=== PATIENT | female | born 1985 | race Caucasian/White ===

== ENCOUNTER → 2016-09-14 | Outpatient (CLI) | payer OTHER ==
[~2016-09-14] MED LIST: ALBUAER19 INH; CLR10 PO; MONT1TAB3 PO; PRENTAB26 PO; RANI150T3 PO
== END | disposition home or self-care (01) ==
LOC: C.LAB1850 08:11 → EDSTATUS 09-22 09:56
PROVIDERS: ATTEND Nurse Practitioner Adult Health
DX: T14.8 Other injury of unspecified body region (principal); W46.1XXA Contact with contaminated hypodermic needle, initial encounter

== ENCOUNTER → 2016-11-09 | Outpatient (CLI) | payer OTHER | END | disposition home or self-care (01) | LOC: C.LAB1850 08:07 → EDSTATUS 11-22 09:49 | PROVIDERS: ATTEND Emergency Medicine | DX: Z77.21 Contact with and (suspected) exposure to potentially hazardous body fluids (principal) ==

== ENCOUNTER → 2017-07-20 | Outpatient (CLI) | payer BC | END | disposition home or self-care (01) | LOC: C.LABSPEC 17:03 | PROVIDERS: ATTEND Obstetrics & Gynecology | DX: O09.291 Supervision of pregnancy with other poor reproductive or obstetric history, first trimester (principal); Z86.32 Personal history of gestational diabetes ==

== ENCOUNTER → 2017-07-26 | Outpatient (CLI) | payer BC ==
[2017-07-26 17:21] LABS: BASO % 0.4 %; BASO ABS # 0.03 K/uL (0-0.2); EOS % 3.8 %; EOS ABS # 0.29 K/uL (0-0.5); HEMATOCRIT 36.6 % (37-47); HEMOGLOBIN 13.1 g/dL (12.0-16.0); IG# 0.01 K/uL (0.00-0.02); LYMPH % 24.9 %; LYMPH ABS # 1.91 K/uL (1.2-3.4); MEAN CELL VOLUME 84.1 fL (80-100); MEAN CORPUSCULAR HEMOGLOBIN 30.1 pg (25-34); MEAN CORPUSCULAR HGB CONC 35.8 g/dl (32-36); MEAN PLATELET VOLUME 10.6 fL (7.4-10.4); MONO % 5.1 %; MONO ABS # 0.39 K/uL (0.11-0.59); NEUT % 65.7 %; NEUT ABS # 5.05 K/uL (1.4-6.5); PLATELET COUNT 274 K/uL (130-400); RED CELL DISTRIBUTION WIDTH CV 12.3 % (11.5-14.5); RED CELL DISTRIBUTION WIDTH SD 37.8 fL (36.4-46.3); WHITE BLOOD COUNT 7.68 K/uL (4.8-10.8)
== END | disposition home or self-care (01) ==
LOC: C.RAD1850 16:10
PROVIDERS: ATTEND Obstetrics & Gynecology
DX: O09.291 Supervision of pregnancy with other poor reproductive or obstetric history, first trimester (principal)

== ENCOUNTER → 2017-07-26 | Outpatient (CLI) | payer BC | END | disposition home or self-care (01) | LOC: C.PAPS 09:12 | PROVIDERS: ATTEND Obstetrics & Gynecology | DX: O09.291 Supervision of pregnancy with other poor reproductive or obstetric history, first trimester (principal) ==

== ENCOUNTER → 2017-07-26 | Outpatient (CLI) | payer BC | END | disposition home or self-care (01) | LOC: C.LABSPEC 17:56 | PROVIDERS: ATTEND Obstetrics & Gynecology | DX: O09.291 Supervision of pregnancy with other poor reproductive or obstetric history, first trimester (principal) ==

== ENCOUNTER → 2018-02-12 | Outpatient (CLI) | payer BC ==
[~2018-02-12] MED LIST changes: +CLC100 PO
[2018-02-12 16:16] LABS: HEMATOCRIT 37.5 % (37-47); HEMOGLOBIN 12.9 g/dL (12.0-16.0); MEAN CORPUSCULAR HEMOGLOBIN 31.3 pg (25-34); MEAN CORPUSCULAR HGB CONC 34.4 g/dl (32-36); MEAN PLATELET VOLUME 12.4 fL (7.4-10.4); PLATELET COUNT 188 K/uL (130-400); RED CELL DISTRIBUTION WIDTH CV 13.6 % (11.5-14.5); RED CELL DISTRIBUTION WIDTH SD 44.7 fL (36.4-46.3); WHITE BLOOD COUNT 8.87 K/uL (4.8-10.8)
[2018-02-12 16:54] LABS: ALBUMIN 2.8 gm/dl (3.4-5.0); ALKALINE PHOSPHATASE 161 U/L (45-117); ALT/SGPT 17 U/L (12-78); AST/SGOT 13 U/L (15-37); BLOOD UREA NITROGEN 12 mg/dl (7-18); CARBON DIOXIDE 23 mmol/L (21-32); CREATININE 0.63 mg/dl (0.60-1.20); GLUCOSE 85 mg/dl (70-99); SODIUM 134 mmol/L (136-145)
== END | disposition home or self-care (01) ==
LOC: C.LAB1850 15:46
PROVIDERS: ATTEND Obstetrics & Gynecology
DX: O26.93 Pregnancy related conditions, unspecified, third trimester (principal)

== ENCOUNTER 2018-02-15 09:04 | Inpatient (IN) | payer BC ==
[~2018-02-15] VITALS: Ht 161.9 cm; Wt 93.2 kg
[~2018-02-15 09:04] MED LIST changes: -CLC100 PO
[2018-02-15] MEDS ORDERED: LACTATED RINGER'S 1000ML 1,000 ML IV PRN (09:16)
[2018-02-15] MEDS ORDERED: PENICILLIN G POTASSIUM IV 6 MU in DEXTROSE 5% 250ML 250 ML IV ONE (09:30)
[2018-02-15] MEDS ORDERED: LACTATED RINGER'S 1000ML 500 ML IV PRN ×2 (09:30→15:51)
[2018-02-15] MEDS ORDERED: OXYTOCIN 30 UNITS/500ML NSS IV PRN ×2 (09:30→20:45)
[2018-02-15 09:56] LABS: INR 0.9 (0.9-1.1)
[2018-02-15 10:09] LABS: ALT/SGPT 16 U/L (12-78); AST/SGOT 14 U/L (15-37); CREATININE 0.56 mg/dl (0.60-1.20)
[2018-02-15] MEDS: LACTATED RINGER'S 1000ML 1,000 ML IV SCH ×2 (10:29→14:31)
[2018-02-15 11:33] VITALS: Ht 161.9 cm; Wt 93.2 kg
[2018-02-15 13:13] LABS: HEMATOCRIT 36.4 % (37-47); HEMOGLOBIN 12.3 g/dL (12.0-16.0); MEAN CELL VOLUME 91.2 fL (80-100); MEAN CORPUSCULAR HEMOGLOBIN 30.8 pg (25-34); MEAN CORPUSCULAR HGB CONC 33.8 g/dl (32-36); MEAN PLATELET VOLUME 12.8 fL (7.4-10.4); PLATELET COUNT 170 K/uL (130-400); RED CELL DISTRIBUTION WIDTH CV 13.6 % (11.5-14.5); RED CELL DISTRIBUTION WIDTH SD 44.9 fL (36.4-46.3); WHITE BLOOD COUNT 7.95 K/uL (4.8-10.8)
[2018-02-15] MEDS: PENICILLIN G POTASSIUM IV 3 MU in DEXTROSE 5% 100ML 100 ML IV PRN ×2 (14:31→18:50)
[2018-02-15] MEDS ORDERED: EpHEDrine SULFATE INJ 50 MG/ML AMP ONE (15:20)
[2018-02-15] MEDS ORDERED: FENTANYL CITRATE INJ 50 MCG/1 ML 2 ML VIAL ONE (15:20)
[2018-02-15] MEDS ORDERED: BUPIVACAINE 0.25% 30 ML VIAL ONE (15:20)
[2018-02-15] MEDS ORDERED: FENTANYL 2MCG/ML ROPIV 1.25MG/ML 100ML BAG ONE (15:21)
[2018-02-15] MEDS ORDERED: NALOXONE HCL INJ 1 MG in SODIUM CHLORIDE 0.9% 1000ML 1,000 ML IV PRN (15:51)
[2018-02-15] MEDS ORDERED: FENTANYL 2MCG/ML ROPIV 1.25MG/ML 100ML BAG EPI PRN (16:00)
[2018-02-15] MEDS ORDERED: DiphenhydrAMINE HCL 50 MG/ML VIAL IV PRN (16:00)
[2018-02-15] MEDS ORDERED: PROMETHAZINE HCL INJ 6.25 MG in SODIUM CHLORIDE 0.9% 50ML 50 ML IV PRN (16:00)
[2018-02-15] MEDS ORDERED: NALBUPHINE HCL INJ 10 MG/ML 1ML AMP IV PRN (16:00)
[2018-02-15] MEDS ORDERED: EpHEDrine SULFATE INJ 50 MG/ML AMP IV PRN (16:00)
[2018-02-15] MEDS ORDERED: NALOXONE HCL INJ 0.4 MG/1 ML VIAL/CARP IV PRN (16:00)
[2018-02-15] MEDS ORDERED: ONDANSETRON INJ 2 MG/ML 2 ML VIAL IV PRN (16:00)
[2018-02-15] MEDS: ALBUTEROL HFA 8 GM INHALER INH SCH ×2 (17:00→21:00)
[2018-02-15] MEDS: RANITIDINE HCL 150 MG TAB PO SCH (20:00)
[2018-02-15] MEDS ORDERED: NURSING VERBAL MED ORDER ONE ×2 (20:15→21:30)
[2018-02-15] MEDS ORDERED: CEFAZOLIN IV 2,000 MG in SYRINGE 0 ML IV SCH (20:30)
[2018-02-15] MEDS ORDERED: ACETAMINOPHEN 325 MG TAB PO PRN (20:45)
[2018-02-15] MEDS ORDERED: BENZOCAINE 20% AER SPR 82.5 GM CAN EXT PRN (20:45)
[2018-02-15] MEDS ORDERED: LANOLIN OINT EXT PRN (20:45)
[2018-02-15] MEDS ORDERED: SUPERCREAM 0.870 % 15GM JAR EXT PRN (20:45)
--- NOTE | 2018-02-15 21:11 | Anesthesia Procedure Note ---
Anesthesia Epidural Removal Nt Date & Time Feb 15, 2018 at 21:11 Vital Signs Pain Intensity: 3.0 Notes Mental Status: alert / awake / arousable, participated in evaluation Nausea / Vomiting: adequately controlled Pain: adequately controlled Airway Patency, RR, SpO2: stable & adequate BP & HR: stable & adequate Hydration State: stable & adequate Neuraxial Anesthesia: was administered, sensory block is resolving Anesthetic Complications: no major complications apparent, pt satisfied with anesthetic care Epidural: removed without complications, with tip intact
[2018-02-15] MEDS: LORATADINE 10 MG TAB PO SCH (22:13)
[2018-02-15] MEDS: MONTELUKAST SOD 10 MG TAB PO SCH (22:13)
--- NOTE | 2018-02-15 22:53 | DELIVERY SUMMARY ---
DATE OF OPERATION: 02/15/2018 PROCEDURE: Normal spontaneous vaginal delivery with a repair of a 3a perineal laceration and periurethral laceration. SURGEON: Dr. Serafin Stallings. PREOPERATIVE DIAGNOSES: 1. Single uterine at 37 weeks 6 days gestational age. 2. Gestational hypertension. 3. Alpha-1 antitrypsin deficiency carrier. 4. Diet-controlled gestational diabetes mellitus. 5. GBS positive. 6. Rh negative. POSTOPERATIVE DIAGNOSES: 1. Single uterine at 37 weeks 6 days gestational age. 2. Gestational hypertension. 3. Alpha-1 antitrypsin deficiency carrier. 4. Diet-controlled gestational diabetes mellitus. 5. GBS positive. 6. Rh negative. ESTIMATED BLOOD LOSS: 350 mL. DRAINS: Straight cath drain, periurethral laceration repair. URINE OUTPUT: Approximately 150 mL via straight cath. COMPLICATIONS: None. FINDINGS: Viable male with weight pending and Apgars 8 and 9 at 1 and 5 minutes respectively. PROCEDURE IN DETAIL: The patient progressed to 10 cm dilated, 100% effaced, positive 2-3 station, pushed over an intact perineum with epidural anesthesia, delivered a viable male with weight pending and Apgars as above. Head of the delivered in ANITA position. No nuchal cord present. The body and shoulders delivered without difficulty. The was noted to be vigorous upon delivery with suctioned bulbed immediately after delivery and was delivered to the maternal abdomen. A 60-second delayed cord clamping was initiated after which the cord was double clamped and cut. The was maintained on the maternal abdomen and cord segment and cord blood were obtained. Placenta was delivered intact with 3-vessel cord with gentle cord traction and was noted to be intact. At this time, attention was turned to the perineum, cervix, and vagina for especially there was noted to be a 3a perineal laceration. This external anal sphincter, capsule were approximated with 3-0 Vicryl with 3 interrupted stitch. The remaining second-degree laceration was repaired with 3-0 Vicryl with a continuous running crown stitch. There was also noted to be a small periurethral laceration, which was noted to be bleeding and was closed with 3 interrupted stitch of 3-0 Vicryl. Hemostasis was noted on all laceration sites. A rectal exam showed intact rectum with no suture present. The patient was noted to be in excellent condition and remained in delivery room during the recovery period with her . I attest to the content of the Intraoperative Record and any orders documented therein. Any exceptions are noted below. INDIRA
[2018-02-16] VITALS (7 sets, daily range): BP systolic 119–156; BP diastolic 74–97; PULSE 70–90; TEMP 36.4–36.7
[2018-02-16] MEDS: IBUPROFEN 600 MG TAB PO PRN ×6 (00:09→23:54)
--- NOTE | 2018-02-16 04:49 | Progress Note ---
Subjective Feb 16, 2018. Subjective conversation w/ patient, chart review, lab review Ambulation: ambulating normally Voiding: no voiding problems Diet Tolerance: Regular Diet Lochia: Small Feeding Type: Breast Feeding Objective Physical Exam General Appearance: WELL-APPEARING Abdomen: non tender Fundus: Firm Laboratory Results Last 24 Hours Test 02/15/18 09:32 02/15/18 09:38 02/15/18 10:07 02/16/18 04:44 Prothrombin Time 9.2 SECONDS Prothromb Time International Ratio 0.9 Activated Partial Thromboplast Time 25.0 SECONDS Partial Thromboplastin Ratio 1.0 Creatinine 0.56 mg/dl Estimated GFR () 144.0 Estimated GFR (Non- 124.2 Aspartate Amino Transf (AST/SGOT) 14 U/L Alanine Aminotransferase (ALT/SGPT) 16 U/L White Blood Count 7.95 K/uL Red Blood Count 3.99 M/uL Hemoglobin 12.3 g/dL Hematocrit 36.4 % Mean Corpuscular Volume 91.2 fL Mean Corpuscular Hemoglobin 30.8 pg Mean Corpuscular Hemoglobin Concent 33.8 g/dl RDW Standard Deviation 44.9 fL RDW Coefficient of Variation 13.6 % Platelet Count 170 K/uL Mean Platelet Volume 12.8 fL Bedside Glucose 92 mg/dl Assessment and Plan Post- Day#: 1 Continue Routine Care: well. No calf pain. Minimal bleeding. Cont current care
--- NOTE | 2018-02-16 06:54 | Progress Note ---
Subjective Feb 16, 2018. Subjective conversation w/ patient, physical exam Ambulation: ambulating normally Voiding: no voiding problems Passing Gas: Yes Diet Tolerance: Regular Diet Lochia: Moderate Feeding Type: Breast Feeding Pain: 1/10 improves with analgesia Review of Systems Constitutional: No fever, No chills, No sweats Respiratory: No cough, No sputum, No wheezing Cardiac: No chest pain, No palpitations Abdomen: No pain, No nausea, No vomiting Female : No dysuria Objective Vital Signs Date Time Temp Pulse Resp B/P (MAP) Pulse Ox O2 Delivery O2 Flow Rate FiO2 02/16/18 04:00 36.7 70 18 130/77 (94) Room Air 02/16/18 00:30 36.6 73 18 133/81 02/16/18 00:30 Room Air Physical Exam General Appearance: WELL-APPEARING, NO APPARENT DISTRESS Respiratory/Chest: chest non-tender, no respiratory distress Cardiovascular: regular rate, rhythm Abdomen: normal bowel sounds Fundus: Firm, Relation to Umbilicus (below) Extremities: non-tender, no calf tenderness Laboratory Results Last 24 Hours Test 02/15/18 09:32 02/15/18 09:38 02/15/18 10:07 02/16/18 04:44 Prothrombin Time 9.2 SECONDS Prothromb Time International Ratio 0.9 Activated Partial Thromboplast Time 25.0 SECONDS Partial Thromboplastin Ratio 1.0 Creatinine 0.56 mg/dl Estimated GFR () 144.0 Estimated GFR (Non- 124.2 Aspartate Amino Transf (AST/SGOT) 14 U/L Alanine Aminotransferase (ALT/SGPT) 16 U/L White Blood Count 7.95 K/uL Red Blood Count 3.99 M/uL Hemoglobin 12.3 g/dL Hematocrit 36.4 % Mean Corpuscular Volume 91.2 fL Mean Corpuscular Hemoglobin 30.8 pg Mean Corpuscular Hemoglobin Concent 33.8 g/dl RDW Standard Deviation 44.9 fL RDW Coefficient of Variation 13.6 % Platelet Count 170 K/uL Mean Platelet Volume 12.8 fL Bedside Glucose 92 mg/dl Medications Current Inpatient Medications Medications (Trade) Dose Ordered Sig/Silvestre Route Start Time Stop Time Status Last Admin Dose Admin Lactated Ringer's 1,000 ml @ 125 mls/hr Q8H IV 02/15/18 09:16 02/17/18 09:15 02/15/18 14:31 125 MLS/HR Lactated Ringer's 1,000 ml @ 999 mls/hr Q1H1M PRN IV 02/15/18 09:16 03/17/18 09:15 Oxytocin (Pitocin IV) 30 units UD PRN IV 02/15/18 09:30 03/17/18 09:29 02/15/18 10:38 30 UNITS Lactated Ringer's 500 ml @ 999 mls/hr Q31M PRN IV 02/15/18 09:30 03/17/18 09:29 Albuterol (Ventolin Hfa Inhaler) 2 puffs QID INH 02/15/18 17:00 03/17/18 16:59 Montelukast Sodium (Singulair Tab) 10 mg HS PO 02/15/18 22:00 03/17/18 21:59 02/15/18 22:13 10 MG Ranitidine HCl (zANTac TAB) 150 mg BID PO 02/15/18 20:00 03/17/18 19:59 Oxytocin (Pitocin IV) 30 units UD PRN IV 02/15/18 20:45 03/17/18 20:44 Benzocaine (Dermoplast Aero Spr) 1 appln PRN PRN EXT 02/15/18 20:45 03/17/18 20:44 02/16/18 00:09 1 APPLN Cocaine HCl (Supercream 0.870% Cr) BID PRN EXT 02/15/18 20:45 03/01/18 20:44 Lanolin (Lanolin Oint) PRN PRN EXT 02/15/18 20:45 03/17/18 20:44 Prenat Multivit/ [place]/Iron/Folic Ac ( Vitamin Tab) 1 tab DAILY PO 02/16/18 08:00 03/18/18 07:59 Ibuprofen (Motrin Tab) 600 mg Q4H PRN PO 02/15/18 20:45 03/17/18 20:44 02/16/18 05:13 600 MG Acetaminophen (Tylenol Tab) 650 mg Q6H PRN PO 02/15/18 20:45 03/17/18 20:44 Bisacodyl (Dulcolax Tab) 5 mg 20 PO 02/16/18 20:00 02/16/18 20:01 Docusate Sodium (coLACE CAP) 100 mg BID PO 02/16/18 08:00 03/18/18 07:59 Loratadine (Claritin Tab) 10 mg HS PO 02/15/18 22:00 03/17/18 21:59 02/15/18 22:13 10 MG Assessment and Plan Post- Day#: 1 Continue Routine Care: 32 yo delivered at 37+6 PPD1 s/p -AFVSS, Pt doing well resting comfortably with baby in the room -no si/sx of anemia, will follow up Hgb from today, 12.3 on admission -Plan is to breast feed -Tolerating regular diet, no n/v -Continue to encourage ambulation -Routine care Resident Tracking Resident Involvement: Resident Care Provided Care Provided: Adult Hospital Medicine
--- NOTE | 2018-02-16 07:07 | Discharge Instructions ---
Discharge Instructions Date of Service Feb 16, 2018. Admission Reason for Admission: Induction Discharge Discharge Diagnosis / Problem: Discharge Goals Goal(s): Routine recovery after delivery Medications Continue Dispensed Medications: supercream, dermaplast, tucks Activity Recommendations Activity Limitations: per Instructions/Follow-up section . Instructions / Follow-Up Instructions / Follow-Up ACTIVITY RECOMMENDATIONS: * Gradual return to full activity over the next 2-3 weeks. * No lifting - nothing heavier than baby over the next 2-3 weeks. * Do not engage in vigorous exercise, sexual activity or sports until cleared by your physician. * Do not drive or operate any motorized equipment until cleared by your physician. * You may shower/bathe daily. MEDICATIONS: For discomfort or pain, you may use Acetaminophen (Tylenol), Ibuprofen (Advil), or Naproxen (Aleve) following the package directions. For constipation you may use Colace following the package directions. BREAST CARE: If you are not breast feeding: * Wear a supportive bra 24 hours a day for one to two weeks. * Avoid stimulating your breasts and nipples as much as possible during the first few weeks after delivery. * When taking a shower, have the warm water hit your back, not breasts. * When your breasts feel full, apply ice packs. Usually three to four times a day helps ease the discomfort. * Take a mild pain medication (Tylenol / Motrin) when you are uncomfortable. If breast feeding: * Use breast milk to lubricate nipples. Lansinoh cream may be used for sore nipples. You do not need to remove cream prior to breast feeding. If using a different brand of cream, check the label for directions regarding removal of cream prior to nursing. * Wear a supportive bra. * If having problems with breasts or breast feeding, call a recruiting consultant or your health care provider. EPISIOTOMY CARE: After delivery, if you have an episiotomy (stitches), the following steps will ease discomfort and aid healing. * For the first 24 hours after delivery, place ice packs next to your episiotomy to help reduce swelling. * After the first 24 hour-period, sitz baths, either portable or in the tub, are suggested. A shower with a shower arm sprayed over the episiotomy may be comforting. * Sisi care should be done after each voiding and bowel movement. Squirt warm water from a plastic bottle over the perineum (region of the body between the anus and urinary opening) and pat dry. * Use Dermoplast to ease discomfort. Shake container. [place] directly over the episiotomy. Place a Tucks on a clean sanitary pad next to your episiotomy. SPECIAL CARE INSTRUCTIONS: When you are discharged from the hospital, it is important for you to follow the instructions listed below: * During the first week at home, you should be able to care for yourself and your baby. In addition, the usual light household activities are encouraged. * Limit your activities to the way you feel. Do not try to clean the house or move furniture. Be sensible. * If you actively engage in sports and have done so up until the time of your delivery, you may resume these activities as soon as you feel able. This may take up to one month or even longer. Use good judgment. * Continue to take your vitamins for at least six weeks after the of your baby. * Your diet need not be limited unless you were on a special diet before your delivery. Breast-feeding mothers need around 2500 calories per day and at least 64-80 ounces of fluid per day (8 to 10 glasses). * You should eat foods from the four major food groups. Crash diets or fad diets are to be avoided. Eating lean meats, fresh fruits and vegetables, low-fat dairy products, high fiber foods and a regular exercise program, will help you get back to your pre- weight without putting your health at risk. * Constipation is sometimes a problem after delivery. Take a mild laxative as needed. If breast feeding, Milk of Magnesia is acceptable to use. You may use a suppository or Fleets enema if no episiotomy. * A daily shower or tub bath is suggested. Be sure to thoroughly and gently dry the perineum. * A bloody vaginal discharge will usually continue until around four weeks post . A small amount of bleeding may continue for as long as six weeks. Vaginal discharge changes from the bright red bleeding after delivery to pink then brownish and finally yellowish-pink before becoming white and disappearing. * Bleeding may increase with activity. Your first period may come in 4-8 weeks. If you are breast feeding, your period may be delayed even longer. * [place] (sex) can begin whenever both you and your partner feel comfortable and do not have any form of genital infection. It is recommended that you wait at least six weeks for internal and external healing to occur. If you have questions, please talk to your health care practitioner. A condom should be used to prevent infection and . * Foreplay, gentle intercourse and lubrication is very important the first several times to prevent pain. A water-based lubricant such as K-Y jelly or Astroglide may be used. * If you have RH negative blood and your baby is RH positive, you will receive RHOGAM by injection prior to discharge. The nurse will give you a card to keep with you that has the date and place that you received RHOGAM after delivery. * During your care, you had a Rubella screen done to check for the presence of rubella antibodies in your blood. If your test was negative, you will receive a Rubella vaccine prior to discharge. This vaccine may cause a fever, soreness at the injection site and flu-like symptoms. If these symptoms persist, notify your health care practitioner. is not advised for one month after a Rubella vaccine. * Verbalizes understanding of car seat law as reviewed with patient nursing. * Car Seat hand-out given and reviewed with patient by nursing. * Shaken baby information reviewed with patient by nursing. Call you doctor if: * Heavy bleeding (saturating several pads an hour) or passing clots the size of your fist. * A fever >101 degrees F (38.3 degrees C) on two occasions four hours apart and /or chills. * Unusual pain in the pelvic or vaginal areas. * "Baby Blues" lasting longer than two weeks. If you have any questions or concerns, call your health care practitioner at . FOLLOW UP VISIT: * Please call the office at to schedule a 6 week examination. It is important you keep this appointment. It is important for you to make arrangements for either yearly or twice yearly check-ups thereafter. Current Hospital Diet Patient's current hospital diet: Regular OB Diet Discharge Diet Recommended Diet: Regular OB Diet Pending Studies Studies pending at discharge: no Medical Emergencies . Who to Call and When: Medical Emergencies: If at any time you feel your situation is an emergency, please call 911 immediately. . Non-Emergent Contact Non-Emergency issues call your: Publicity Director Call Non-Emergent contact if: temperature is above 100.5 . . "Provider Documentation" section prepared by Arron Jenkins. .
[2018-02-16] MEDS: PRENATAL VITAMIN TAB PO SCH (07:30)
[2018-02-16] MEDS: RANITIDINE HCL 150 MG TAB PO SCH ×2 (07:30→20:00)
[2018-02-16] MEDS: ALBUTEROL HFA 8 GM INHALER INH SCH ×4 (07:30→20:00)
[2018-02-16] MEDS: DOCUSATE SODIUM 100 MG CAP PO SCH ×2 (07:30→20:08)
[2018-02-16] MEDS ORDERED: LORATADINE 10 MG TAB PO SCH ×2 (08:00→22:00)
[2018-02-16 08:26] LABS: HEMATOCRIT 35.3 % (37-47); HEMOGLOBIN 11.9 g/dL (12.0-16.0)
[2018-02-16] MEDS ORDERED: BISACODYL 5 MG TABEC PO SCH (20:00)
[2018-02-16] MEDS: MONTELUKAST SOD 10 MG TAB PO SCH (22:28)
[2018-02-16] MEDS: LORATADINE 10 MG TAB PO SCH (22:28)
[2018-02-17] MEDS: IBUPROFEN 600 MG TAB PO PRN ×2 (05:18→18:31)
[2018-02-17 08:00] VITALS: BP 158/90; PULSE 85; TEMP 36.6
[2018-02-17] MEDS: ALBUTEROL HFA 8 GM INHALER INH SCH ×3 (08:00→17:00)
[2018-02-17] MEDS: RANITIDINE HCL 150 MG TAB PO SCH (08:00)
[2018-02-17] MEDS: DOCUSATE SODIUM 100 MG CAP PO SCH (08:01)
[2018-02-17] MEDS: PRENATAL VITAMIN TAB PO SCH (08:01)
--- NOTE | 2018-02-17 08:05 | Progress Note ---
Subjective Feb 17, 2018. Subjective conversation w/ patient, physical exam Ambulation: ambulating normally Voiding: no voiding problems Passing Gas: Yes Diet Tolerance: Regular Diet Lochia: Small Feeding Type: Breast Feeding Review of Systems Constitutional: No fever, No chills, No sweats, No weight loss, No weakness, No fatigue, No problem reported Breast: No see HPI, No breast lump, No change in shape, No nipple discharge, No breast pain, No problem reported Female : No see HPI, No dysuria, No urinary frequency, No hematuria, No incontinence, No abnormal vaginal bleeding, No vaginal discharge, No problem reported Objective Vital Signs Date Time Temp Pulse Resp B/P (MAP) Pulse Ox O2 Delivery O2 Flow Rate FiO2 02/16/18 23:50 36.4 79 20 131/82 (98) Room Air 02/16/18 23:50 Room Air 02/16/18 20:00 36.5 90 20 156/97 (116) Room Air 02/16/18 20:00 Room Air 02/16/18 15:40 36.5 80 20 129/80 (96) Room Air 02/16/18 11:15 36.6 74 18 119/74 (89) Room Air Physical Exam General Appearance: WELL-APPEARING, NO APPARENT DISTRESS Abdomen: non tender, soft Fundus: Firm, Non-Tender, Relation to Umbilicus (2 below U) Extremities: no calf tenderness Laboratory Results Last 24 Hours Test 02/16/18 08:05 Hemoglobin 11.9 g/dL Hematocrit 35.3 % Assessment and Plan Post- Day#: 2 Continue Routine Care: Blood pressures now decreased. stable course discharge to home follow up for BP check in 2 weeks.
[2018-02-17] MEDS ORDERED: PRENATAL VITAMIN TAB PO SCH (08:06)
[2018-02-17] MEDS ORDERED: CLC100 PO (08:09)
[2018-02-17 15:30] VITALS: BP 153/81; PULSE 85; TEMP 36.5
[2018-02-17 18:35] VITALS: BP_DIAS 81; PULSE 85; TEMP 36.5
[2018-02-17] MEDS ORDERED: DOCUSATE SODIUM 100 MG CAP PO SCH (20:00)
== END 2018-02-17 18:35 | disposition home or self-care (01) | DRG 774 ==
LOC: C.LD 09:04 → C.OBG 02-16 00:17
PROVIDERS: ADMIT Obstetrics & Gynecology; ATTEND Obstetrics & Gynecology
PROC: 0U7C7ZZ Dilation of Cervix, Via Natural or Artificial Opening (ICD-10-PCS; principal; 2018-02-15)
PROC: 0DQR0ZZ Repair Anal Sphincter, Open Approach (ICD-10-PCS; principal; 2018-02-15)
PROC: 0UQMXZZ Repair Vulva, External Approach (ICD-10-PCS; principal; 2018-02-15)
PROC: 10E0XZZ Delivery of Products of Conception, External Approach (ICD-10-PCS; principal; 2018-02-15)
DX: O13.4 Gestational [pregnancy-induced] hypertension without significant proteinuria, complicating childbirth (principal); O99.42 Diseases of the circulatory system complicating childbirth; I73.00 Raynaud's syndrome without gangrene; O70.21 Third degree perineal laceration during delivery, IIIa; O71.82 Other specified trauma to perineum and vulva; O99.824 Streptococcus B carrier state complicating childbirth; O24.420 Gestational diabetes mellitus in childbirth, diet controlled; O99.52 Diseases of the respiratory system complicating childbirth; J45.909 Unspecified asthma, uncomplicated; Z3A.37 37 weeks gestation of pregnancy; Z37.0 Single live birth; Z14.8 Genetic carrier of other disease; Z67.91 Unspecified blood type, Rh negative; Z79.899 Other long term (current) drug therapy; Z88.8 Allergy status to other drugs, medicaments and biological substances